=== PATIENT | male | born 1945 | race Caucasian/White ===

== ENCOUNTER 2016-09-12 20:49 | Inpatient (IN) | payer MEDICARE ==
[~2016-09-12] VITALS: Ht 170.2 cm; Wt 63.6 kg
[~2016-09-12 20:49] MED LIST: ATROVENT 0.02%2.5 ML UPD; BACTRIM DS TABL1 TAB PO; BENADRYL50 MG PO; CARDIZEM60 MG; DESYREL50 MG PO; DUONEB 2.5-0.5 M3 ML UPD; FLEXERIL10 MG; FORADIL12 MCG INH; GLUCOPHAGE1000 MG PO; GLUCOPHAGE500 MG PO; ILOTYCIN1 GM OP; K-DUR20 MEQ PO; LASIX40 MG PO; LEVAQUIN500 MG PO; PLAVIX75 MG PO; PRAVACHOL20 MG PO; PREDNISONE10 MG PO; PULMICORT0.5 MG/21 INH; SPIRIVA18 MCG INH; VENTOLIN/PR2 MG/5 ML PO; XOPENEX 0.0.63 MG/3 UPD
[2016-09-12 21:35] LABS: BASOPHILS 0.1 % (0.0-2.0); EOSINOPHILS 0.2 % (0-7); HEMATOCRIT 44.6 % (42.0-54.0); HEMOGLOBIN 14.1 g/dL (13.5-17.5); LYMPHOCYTES 11.6 % (15-50); MCH 28.3 pg (26.0-34.0); MCHC 31.6 g/dL (31.0-37.0); MCV 89.6 fL (80.0-100.0); MEAN PLATELET VOLUME 12.1 fL (7.4-10.4); NEUTROPHILS 78.1 % (40-80); PLATELET COUNT 168 10x3/uL (130-400); RBC 4.98 10x6/uL (4.20-6.10); RDW 14.4 % (11.5-14.5); WBC 10.1 10x3/uL (4.8-10.8)
[2016-09-12 21:46] LABS: APPEARANCE CLEAR (CLEAR); BILIRUBIN NEGATIVE (NEGATIVE); COLOR YELLOW (YELLOW); GLUCOSE NEGATIVE (NEGATIVE); KETONE NEGATIVE (NEGATIVE); LEUKOCYTE ESTERASE NEGATIVE (NEGATIVE); NITRITE NEGATIVE (NEGATIVE); PROTEIN NEGATIVE (NEGATIVE); UROBILINOGEN NORMAL (NORMAL)
[2016-09-12 21:50] LABS: CARBON DIOXIDE 28.4 mmol/L (21.0-32.0); CHLORIDE - SERUM 102 mmol/L (98-107); POTASSIUM - SERUM 4.3 mmol/L (3.5-5.1); SODIUM 141 mmol/L (136-145); UREA NITROGEN 14 mg/dL (7-18)
[2016-09-12 21:51] LABS: UDS - AMPHET NEGATIVE QUAL (NEGATIVE); UDS - BARB NEGATIVE QUAL (NEGATIVE); UDS - BENZO NEGATIVE QUAL (NEGATIVE); UDS - COCAINE NEGATIVE QUAL (NEGATIVE); UDS - METH NEGATIVE QUAL (NEGATIVE); UDS - OPIATE NEGATIVE QUAL (NEGATIVE); UDS - PCP NEGATIVE QUAL (NEGATIVE); UDS - THC NEGATIVE QUAL (NEGATIVE)
[2016-09-12 22:13] LABS: ALKALINE PHOSPHATASE 69 U/L (46-116); ALT (SGPT) 31 U/L (10-68); AMYLASE - SERUM 43 U/L (25-115); BILIRUBIN - TOTAL 0.79 mg/dL (0.2-1.3); CKMB 0.6 U/L (0.0-3.6); CREATINE KINASE 17 UL (21-232); GLUCOSE 165 mg/dL (74-106); LIPASE 79 U/L (73-393); PROTEIN - SERUM 6.3 g/dL (6.4-8.2)
[2016-09-12 22:28] LABS: CALC OSMOLALITY 283 mosm/kg (275-300); CALCIUM 8.6 mg/dL (8.5-10.1); CREATININE - SERUM 0.7 mg/dL (0.6-1.3); TROPONIN-I < 0.017 ng/mL (0.000-0.060); eGFR NON AFRICAN AMERICAN > 90 mL/min (90-120)
[2016-09-13] VITALS (27 sets, daily range): BP systolic 74–132; BP diastolic 53–85; BMI 22.6
--- NOTE | 2016-09-13 00:20 | NUR ---
ARRIVED TO ROOM 2309 VIA STRETCHER. SEDATED ON DIPRIVAN AT 4MCG/KG/MIN TO LEFT AC PIV 18G. 8.0 OETT, 25CM AT THE LIP. VENT SETTINGS SET AC; 20; 600; 50% FIO2 AND PEEP OF 5. SKIN INTACT TO POSTERIOR SIDE. NO WOUNDS. UMBILICAL SCAR NOTED WITH HERNIA NOTED WITH COUGHING. WITHDRAWS FROM PAINFUL STIMULI TO EACH EXTREMITY. PLACED INTO BILATERAL WRIST RESTRAINTS TO PREVENT REMOVAL OF OETT. HOB AT 30. SCD'S PLACED ONTO BILATERAL LE'S. TOSCANO TO GRAVITY NOTED WITH SCANT AMT OF CLEAR, ANTON URINE. WILL MONITOR.
[2016-09-13 00:57] LABS: CKMB 6.3 U/L (0.0-3.6); CREATINE KINASE 8 UL (21-232); TROPONIN-I 0.036 ng/mL (0.000-0.060)
[2016-09-13] MEDS ORDERED: GLIPIZIDE10 MG PO (00:59)
[2016-09-13] MEDS ORDERED: ASPIRIN81 MG PO (01:02)
[2016-09-13] MEDS ORDERED: OMEPRAZOLE20 M1 PO (01:03)
[2016-09-13] MEDS ORDERED: COZAAR25 MG PO (01:05)
[2016-09-13] MEDS ORDERED: DALIRESP500 MCG PO (01:06)
[2016-09-13] MEDS ORDERED: LIPITOR20 MG PO (01:08)
[2016-09-13] MEDS ORDERED: SPIRIVA18 MCG INH (01:10)
[2016-09-13] MEDS ORDERED: VENTOLIN HFA18 GM INH (01:12)
--- NOTE | 2016-09-13 01:30 | NUR ---
DR. BROCK CALLED AND INFORMED OF DECREASED B/P. NS BOLUS STARTED.
--- NOTE | 2016-09-13 01:45 | NUR ---
FAMILY LEAVING BEDSIDE. WILL CALL TO GET UPDATES.
--- NOTE | 2016-09-13 02:50 | NUR ---
AM ABG DRAWN PER KHLOE WITH R.T. RESTING WITH EYES CLOSED ON 10MCG/KG/MIN OF DIPRIVAN.
--- NOTE | 2016-09-13 03:50 | NUR ---
REASSESSMENT COMPLETED. SEE ASSESSMENT FLOWSHEET. NO NEW ACUTE CHANGES NOTED. OPENS EYES AND WITHDRAWS FROM PAINFUL STIMULI WHEN ILLICITED. I & O'S COMPLETED. MINIMAL URINARY OUTPUT NOTED. TURNED AND REPOSITIONED TO RT SIDE. WILL MONITOR.
--- NOTE | 2016-09-13 05:00 | NUR ---
AM LABS DRAWN. NO ACUTE DISTRESS NOTED. WILL MONITOR.
[2016-09-13 05:29] LABS: BASOPHILS 0.1 % (0.0-2.0); EOSINOPHILS 0 % (0-7); HEMATOCRIT 37.5 % (42.0-54.0); HEMOGLOBIN 11.6 g/dL (13.5-17.5); IMMATURE GRANULOCYTES 1.4 % (0-5); LYMPHOCYTES 3.4 % (15-50); MCH 27.8 pg (26.0-34.0); MCHC 30.9 g/dL (31.0-37.0); MCV 89.7 fL (80.0-100.0); MEAN PLATELET VOLUME 12.1 fL (7.4-10.4); MONOCYTES 1.8 % (2-11); NEUTROPHILS 93.3 % (40-80); PLATELET COUNT 152 10x3/uL (130-400); RBC 4.18 10x6/uL (4.20-6.10); RDW 14.3 % (11.5-14.5); WBC 8.1 10x3/uL (4.8-10.8)
[2016-09-13 05:56] LABS: ALBUMIN 2.6 g/dL (3.4-5.0); ALKALINE PHOSPHATASE 55 U/L (46-116); ALT (SGPT) 25 U/L (10-68); BILIRUBIN - TOTAL 0.47 mg/dL (0.2-1.3); CALCIUM 8.5 mg/dL (8.5-10.1); CARBON DIOXIDE 25.6 mmol/L (21.0-32.0); CHLORIDE - SERUM 105 mmol/L (98-107); CREATININE - SERUM 0.7 mg/dL (0.6-1.3); MAGNESIUM - SERUM 1.5 mg/dL (1.8-2.4); PHOSPHOROUS 3.9 mg/dL (2.5-4.9); POTASSIUM - SERUM 4.2 mmol/L (3.5-5.1); SODIUM 140 mmol/L (136-145); UREA NITROGEN 16 mg/dL (7-18); eGFR NON AFRICAN AMERICAN > 90 mL/min (90-120)
[2016-09-13 05:57] LABS: CALC OSMOLALITY 286 mosm/kg (275-300); GLUCOSE 221 mg/dL (74-106)
--- NOTE | 2016-09-13 06:05 | NUR ---
RAPID FLU SWAB COMPLETED TO RT NARE. SENT TO LAB.
[2016-09-13 06:20] LABS: CKMB 0.9 U/L (0.0-3.6); CREATINE KINASE 11 UL (21-232); TROPONIN-I 0.052 ng/mL (0.000-0.060)
[2016-09-13 12:20] LABS: CKMB 0.9 U/L (0.0-3.6)
[2016-09-13 12:21] LABS: CREATINE KINASE 6 UL (21-232)
--- NOTE | 2016-09-13 19:30 | NUR ---
ASSESSMENT COMPLETE. S1S2. PT SEDATED ON VENT; RR CLEAR BILATERALLY IN LOWER LOBES; DIMINISHED BILATERALLY IN MID AND LOWER LOBES. RADIAL PULSES +2; PEDAL PULSES +1. BILATERALLY FEET SCALY; DRY; FLAKEY. SINUS TACHYCARDIA SHOWING ON MONITOR. BP DECREASED; MAP IN 70'S. MONITORING CLOSELY. RIGHT AND LEFT PIV TO AC; BOTH PATENT. TOSCANO AND SCD IN PLACE. HX OF UMBILICAL HERNIA NOTED; AND PALPATED. NO DISTRESS NOTED. VSS. WILL CONTINUE TO MONITOR.
--- NOTE | 2016-09-13 21:30 | NUR ---
SPOKE WITH FAMILY; . UPDATE ON PT CONDITION GIVEN.
--- NOTE | 2016-09-13 23:15 | NUR ---
REASSESSMENT COMPLETE. NO CHANGES FROM PREVIOUS ASSESSMENT; OTHER THAN INCREASE IN ALERTNESS. NO ADJUSTMENTS MADE IN SEDATION. PT ABLE TO ANSWER YES AND NO QUESTIONS BY NODDING; ANSWERS APPROPRIATELY. ABLE TO FOLLOW COMMANDS. WILL CONTINUE TO MONITOR.
[2016-09-14] VITALS (23 sets, daily range): BP systolic 95–145; BP diastolic 59–91; Ht 170.2 cm; Wt 63.6 kg
--- NOTE | 2016-09-14 02:45 | NUR ---
REASSESSMENT COMPLETE. NO CHANGES FROM PREVIOUS ASSESSMENT. VSS. NO DISTRESS NOTED. WILL CONTINUE TO MONITOR.
--- NOTE | 2016-09-14 04:00 | NUR ---
I/O COLLECTED. TOSCANO EMPTIED. PUMPS CLEARED.
[2016-09-14 05:23] LABS: BASOPHILS 0 % (0.0-2.0); EOSINOPHILS 0 % (0-7); HEMATOCRIT 35.3 % (42.0-54.0); HEMOGLOBIN 11.3 g/dL (13.5-17.5); IMMATURE GRANULOCYTES 1.1 % (0-5); LYMPHOCYTES 5.6 % (15-50); MCH 27.8 pg (26.0-34.0); MEAN PLATELET VOLUME 11.8 fL (7.4-10.4); MONOCYTES 5.8 % (2-11); NEUTROPHILS 87.5 % (40-80); PLATELET COUNT 160 10x3/uL (130-400); RBC 4.07 10x6/uL (4.20-6.10); RDW 14.1 % (11.5-14.5); WBC 6.2 10x3/uL (4.8-10.8)
[2016-09-14 05:31] LABS: MCV 86.7 fL (80.0-100.0)
[2016-09-14 05:39] LABS: CALC OSMOLALITY 288 mosm/kg (275-300); CALCIUM 8.5 mg/dL (8.5-10.1); CARBON DIOXIDE 24.2 mmol/L (21.0-32.0); CHLORIDE - SERUM 106 mmol/L (98-107); CREATININE - SERUM 0.6 mg/dL (0.6-1.3); GLUCOSE 224 mg/dL (74-106); PHOSPHOROUS 3.1 mg/dL (2.5-4.9); SODIUM 141 mmol/L (136-145); UREA NITROGEN 14 mg/dL (7-18); eGFR NON AFRICAN AMERICAN > 90 mL/min (90-120)
[2016-09-14 05:40] LABS: MAGNESIUM - SERUM 2.1 mg/dL (1.8-2.4); POTASSIUM - SERUM 3.3 mmol/L (3.5-5.1)
--- NOTE | 2016-09-14 07:00 | NUR ---
REC'D REPORT AND RESUMED CARE, ETT TO VENTILATION SECURED, IN SIMV MODE WITH A RATE OF 14 AND 40% FIOS, ORAL CARE AND SUCTION OF THICK WHITE SECRETIONS, RIGHT 20G PIV WITH PROPOFAL AT 25 MCG, AND LEFT PIV WITH NS AT 75 CC/HR, TOSCANO TO GRAVITY WITH CONCENTRATED DRAINAGE TO BAG, SCD'S AND RESTRAINTS B/L, ASSESSMENT COMPLETE PER FLOWSHEET, VSS, REPOSITIONED TO BACK WITH HEELS FLOATED
--- NOTE | 2016-09-14 09:00 | NUR ---
PC FROM , PASSWORD OBTAINED, STATUS UPDATE GIVEN, NO OPTHER NEEDS AT THIS TIME
--- NOTE | 2016-09-14 10:30 | NUR ---
PLACE ON CPAP BY RT, SEDATION OFF, WAKES UP AND FOLLOWS COMMANDS
--- NOTE | 2016-09-14 11:15 | NUR ---
ABG'S COMPLETED BY RT
--- NOTE | 2016-09-14 11:30 | NUR ---
EXTUBATED TO 4L NC BY RT, ORAL CARE AND SUCTION COMPLETED, SAT 96%
--- NOTE | 2016-09-14 12:00 | NUR ---
FAMILY AT BEDSIDE, STATUS UPDATED, VOICES, NO NEEDS AT THIS TIME
--- NOTE | 2016-09-14 13:00 | NUR ---
CHANGED TO BIPAP BY RT AT 40% FIO2 AND A RATE OF 22
--- NOTE | 2016-09-14 15:00 | NUR ---
CHANGED TO NC AT 4L, FAMILY AT BEDSIDE, STATUS UPDATED, ASSESSMENT COMPLETED PER FLOWSHEET, NO ACUTE CHANGES, WILL CONTINUE WITH POC
--- NOTE | 2016-09-14 16:45 | NUR ---
Patient Name: FLIP DOLAN Admission Status: ER Accout number: [id number] Admission Date: 09-12-2016 : 1945 Admission Diagnosis:SHORTNESS OF BREATH Attending: ROSALINDA Current LOS: 2 Anticipated DC Date: 09-18-2016 Planned Disposition: Home Primary Insurance: MEDICARE PART A ONLY Discharge Planning Comments: CM MET WITH PATIENT REGARDING D/C NEEDS AND PLANS. PATIENT STATED HE LIVES WITH HIS (PIERCE) AND THEY HAVE A RAMP TO ENTER THEIR HOME. PATIENTS SON (NEHEMIAH) WILL DRIVE HIM HOME AT DISCHARGE. PATIENT IS INDEPENDENT WITH HIS CARE AND HAS A WALKER, OXYGEN (3L), PORT O2, NEBULIZER, GLUCOMETER (CHECKS 1X DAILY), BS COMMODE, AND A SHOWER CHAIR AT HOME. [place] DR[place]. [place] REFUSING TO GO [place] -PATIENT STATED "I WOULDN'T TAKE A DOG TO [place]" "I AM NOT GOING-DO NOT CALL". PATIENTS OXYGEN IS SUPPLIED BY SOMEONE AT [place]OUGH THE [place]. PATIENT IS CONSIDERING HOME HEALTH AT DISCHARGE. CM WILL CONTINUE TO FOLLOW PATIENT WITH D/C NEEDS AND PLANS. PCP DR. PIÑA [place] [facility] PIERCE (DAUGHTER) [phone] Blacking Wheel Tender: Ольга Morris Is the patient Alert and Oriented? Yes 0 * How many steps to enter\\exit or inside your home? RAMP 0 * PCP [place] DR. PIÑA 0 * Pharmacy [facility] 0 * Preadmission Environment Home with Family 0 * ADLs Independent 0 * Equipment Bedside Commode Glucometer Nebulizer Oxygen Shower Chair Walker 0 * Other Equipment PORTABLE O2 0 * List name and contact numbers for known caregivers / representatives who currently or will assist patient after discharge: PIERCE (DAUGHTER) [phone] * Community resources currently utilized None 0 * Additional services required to return to the preadmission environment? Yes 0 * Can the patient safely return to the preadmission environment? Yes 0 * Has this patient been hospitalized within the prior 30 days at any hospital? No 0 Grand Total: 0
--- NOTE | 2016-09-14 17:35 | NUR ---
C/O OF PAIN WITH LEFT AC PIV, DC'D WITH CATHETER INTACT, NO SWELLING OR ERYTHEMA NOTED, GAUZE DRESSING APPLIED
--- NOTE | 2016-09-14 18:00 | NUR ---
NO VISITORS AT THIS TIME, AAO CONTINUES ON NC AT 4 L, SAT 97%,
--- NOTE | 2016-09-14 18:42 | NUR ---
PLACED ON BIPAP PER REQUEST
--- NOTE | 2016-09-14 19:50 | NUR ---
REC'D TO ROOM CV07 FROM ICU VIA BED, ALL MONITORS ESTABLISHED, PT AWAKE, ALERT, AND ORIENTED X 4, O2 @ 4LITERS VIA NC, RIGHT A/C PIV WITH NS @ 50CC/HR CM-ST @ 107, ABD SOFT, BS X 4, TOSCANO PATENT DRAINING CONCENTRATED URINE WITH SEDIMENT, PT DENIES PAIN, REPOSITIONED UP IN BED FOR COMFORT, SR UP X 2, CALL LIGHT IN REACH.
--- NOTE | 2016-09-14 20:00 | NUR ---
SPOKE WITH PT'S UPDATE GIVEN AND QUESTIONS ANSWERED AFTER PASSWORD VERIFIED.
--- NOTE | 2016-09-14 20:30 | NUR ---
ICE WATER AND YANKEUR PROVIDED ON REQUEST, ROUTINE ANTIBIOTIC INFUSING, PT RESTING QUIETLY WATCHING TV, DENIES FURTHER NEEDS.
--- NOTE | 2016-09-14 20:55 | NUR ---
LAB AT FOR TIMED LAB DRAW
--- NOTE | 2016-09-14 21:20 | NUR ---
SON AT BS UPDATE GIVEN AND QUESTIONS ANSWERED.
--- NOTE | 2016-09-14 22:45 | NUR ---
PT PLACED ON BIPAP @ 40%, PT COMPLAINS OF BEING COLD WARM BLANKET PROVIDED ,DENIES FURTHER NEEDS.
--- NOTE | 2016-09-14 23:30 | NUR ---
REASSESSMENT COMPLETED, ROUTINE MEDS GIVEN, FSBS 150, NO COVERAGE REQUIRED AT THIS TIME, VSS, WILL MONITOR FOR CHANGES.
[2016-09-15] VITALS (16 sets, daily range): BP systolic 124–162; BP diastolic 60–88
--- NOTE | 2016-09-15 00:43 | NUR ---
PT REMOVED FROM BIPAP AND PLACED ON 4LITER NC, PT COMPLAINS OF BIPAP MASK HURTING UNDER LEFT EYE DESPITE LOOSENING MASK, RT NOTIFIED.
--- NOTE | 2016-09-15 03:00 | NUR ---
REASSESSMENT COMPLETED, PT RESTING ON BIPAP EYES CLOSED, RESP @ 24 ,O2 SAT 99%, BP STABLE, NO DISTRESS NOTED, WILL CONTINUE TO MONITOR FOR CHANGES.
--- NOTE | 2016-09-15 04:23 | NUR ---
RADIOLOGY AT BS FOR AM CXR
--- NOTE | 2016-09-15 05:31 | NUR ---
LAB AT FOR AM LAB DRAW
[2016-09-15 05:56] LABS: BASOPHILS 0.1 % (0.0-2.0); EOSINOPHILS 0 % (0-7); HEMATOCRIT 37.5 % (42.0-54.0); HEMOGLOBIN 11.9 g/dL (13.5-17.5); IMMATURE GRANULOCYTES 1.2 % (0-5); LYMPHOCYTES 3.8 % (15-50); MCH 27.7 pg (26.0-34.0); MCHC 31.7 g/dL (31.0-37.0); MCV 87.4 fL (80.0-100.0); MEAN PLATELET VOLUME 11.4 fL (7.4-10.4); MONOCYTES 5.2 % (2-11); NEUTROPHILS 89.7 % (40-80); PLATELET COUNT 154 10x3/uL (130-400); RBC 4.29 10x6/uL (4.20-6.10); RDW 14.1 % (11.5-14.5); WBC 7.3 10x3/uL (4.8-10.8)
[2016-09-15 06:20] LABS: CALC OSMOLALITY 285 mosm/kg (275-300); CALCIUM 8.3 mg/dL (8.5-10.1); CARBON DIOXIDE 23.7 mmol/L (21.0-32.0); CHLORIDE - SERUM 107 mmol/L (98-107); CREATININE - SERUM 0.5 mg/dL (0.6-1.3); MAGNESIUM - SERUM 1.9 mg/dL (1.8-2.4); POTASSIUM - SERUM 4.1 mmol/L (3.5-5.1); SODIUM 141 mmol/L (136-145); UREA NITROGEN 16 mg/dL (7-18); eGFR NON AFRICAN AMERICAN > 90 mL/min (90-120)
[2016-09-15 06:23] LABS: GLUCOSE 172 mg/dL (74-106)
--- NOTE | 2016-09-15 06:30 | NUR ---
SERUM GLUCOSE 172, 4 UNITS HUMALOG GIVEN TO LEFT ARM, PT REMAINS ON BIPAP, CALM AND COOPERATIVE, DENIES NEEDS, STATES "YES" WHEN ASKED IF ROOM TO COLD, WORK ORDER SENT TO ENGINEERING
--- NOTE | 2016-09-15 07:00 | NUR ---
PT REPORT REC'D, PT CARE ASSUMED. PT AAOX4, LAYING IN BED. NO C/O PAIN, VSS, 40% BIPAP. RIGHT AC PIV WITH FLUIDS INFUSING, SEE FLOW SHEET. TOSCANO CATHETER FREE OF KINKS WITH CONCENTRATED URINE RETURN TO GRAVITY. DISCOLORATION TO BILAT EXTREMETIES NOTED. SHIFT ASSESSMENT COMPLETED, SEE FLOW SHEET. ROOM FREE OF CLUTTER, BED LOCKED IN LOWEST POSITION, CALL LIGHT IN REACH, WILL CONTINUE TO MONITOR PT.
--- NOTE | 2016-09-15 08:16 | NUR ---
RT WITH PT, SWITCHED FROM BIPAP TO 3LNC, WILL CONINUE TO MONITOR PT.
--- NOTE | 2016-09-15 08:45 | NUR ---
PT STATING "ROOMS TOO HOT, I NEED MY BIPAP" PUT PT ON BIPAP, WORK ORDER SENT TO ENGINEERING TO ADJUST PT'S ROOM TEMPERATURE. WILL CONTINUE TO MONITOR PT.
--- NOTE | 2016-09-15 09:42 | NUR ---
PT REQUESTING TO BE PUT BACK ON NC, TRANSFERRED PT, PT STATED "I USE 4L AT HOME." INCREASED NC FROM 3LNC TO 4LNC,PT TOLERATING WELL, WILL CONTINUE TO MONITOR PT.
--- NOTE | 2016-09-15 10:18 | NUR ---
PT C/O SOB, REQUESTIONG TO BE PUT ON BIPAP, WILL CONTINUE TO MONITOR PT.
--- NOTE | 2016-09-15 11:00 | NUR ---
PT RESTING WITH EYES CLOSED, VSS, BIPAP 40%, REASSESSMENT COMPLETED, SEE FLOW SHEET. ROOM FREE OF CLUTTER, CALL LLIGHT IN REACH, WILL CONTINUE TO MONITOR PT.
--- NOTE | 2016-09-15 11:01 | NUR ---
NUTRITION MONITORING & EVAL CHART REVIEWED. NURSING REPORTS PT ON BIPAP. TOLERATING CLEAR LIQUIDS. TO ADVANCE DIET TO FULL LIQUID AT LUNCH. WILL CONTINUE TO PROVIDE DIET ORDERED, MONITOR PT PROGRESS. RD FOLLOWING
--- NOTE | 2016-09-15 13:01 | NUR ---
PT REPORT CALLED TO NANO PETERSON, PT TO TRANSFER TO ROOM 2128 VIA BED.
--- NOTE | 2016-09-15 13:37 | NUR ---
RECEIVED PT TO ROOM 2127 IN STABLE CONDITION O2 ON 4 LPM NC BIPAP AT AT BEDSIDE RESP UNLABORED PT DENIES ANY NEEDS OR DISCOMFORT AT THIS TIME WILL CONTINUE TO MONITOR
--- NOTE | 2016-09-15 16:34 | NUR ---
fsbs 120
--- NOTE | 2016-09-15 19:57 | NUR ---
RESTING IN BED. ALERT/ORIENTED. HAD BIPAP ON , REQUESTED TO TAKE IT OFF AND PUT ON O2 @ 4L/NC. NS @ 75ML/HR INFUSING TO RIGHT A/C. DORCAS PATENT TO BEDSIDE DRAIN BAG. SR PER TELEMETRY. SEE SHIFT ASSESSMENT. CALL LIGHT IN REACH.
[2016-09-16] VITALS: BP 136/81
[2016-09-16 04:00] VITALS: BP 140/82
[2016-09-16 05:56] LABS: BASOPHILS 0.1 % (0.0-2.0); EOSINOPHILS 0 % (0-7); HEMATOCRIT 37.5 % (42.0-54.0); HEMOGLOBIN 11.9 g/dL (13.5-17.5); IMMATURE GRANULOCYTES 3.1 % (0-5); LYMPHOCYTES 4.1 % (15-50); MCH 27.7 pg (26.0-34.0); MCHC 31.7 g/dL (31.0-37.0); MCV 87.4 fL (80.0-100.0); MEAN PLATELET VOLUME 11.2 fL (7.4-10.4); MONOCYTES 6.7 % (2-11); PLATELET COUNT 161 10x3/uL (130-400); RBC 4.29 10x6/uL (4.20-6.10); WBC 6.8 10x3/uL (4.8-10.8)
[2016-09-16 06:19] LABS: CALC OSMOLALITY 280 mosm/kg (275-300); CALCIUM 8.5 mg/dL (8.5-10.1); CARBON DIOXIDE 26.1 mmol/L (21.0-32.0); CHLORIDE - SERUM 105 mmol/L (98-107); CREATININE - SERUM 0.4 mg/dL (0.6-1.3); GLUCOSE 164 mg/dL (74-106); MAGNESIUM - SERUM 1.8 mg/dL (1.8-2.4); POTASSIUM - SERUM 4.2 mmol/L (3.5-5.1); SODIUM 138 mmol/L (136-145); UREA NITROGEN 16 mg/dL (7-18); VANCOMYCIN - TROUGH 11.1 ug/mL (10.0-20.0); eGFR NON AFRICAN AMERICAN > 90 mL/min (90-120)
[2016-09-16 08:00] VITALS: BP 148/79
[2016-09-16 12:00] VITALS: BP 134/81
[2016-09-16 16:09] VITALS: BP 146/80
[2016-09-16 20:00] VITALS: BP 146/80
--- NOTE | 2016-09-16 20:36 | NUR ---
PT RESTING IN BED. ALERT/ORIENTED. NEWLY SITED IV TO LFA WITH NS @ 75ML/HR INFUSING. IV ABT STARTED. PT ASSESSED. DORCAS PATENT TO BEDSIDE DRAIN BAG, DARK YELLOW IN COLOR. CURRENTLY WEARING O2 @ 4L/NC WITH NONLABORED RESPIRATIONS. WILL BE PLACED ON BIPAP AT BEDTIME. JIA AT BEDSIDE FOR PT USE. FSBS AC & HS, CURRENTLY 119. DISCUSSED PT'S MOBILITY WITH HIM. HE STATES HE HAS NOT BEEN OUT OF BED SINCE ICU AND KNOWS THAT HE IS VERY WEAK NOW, NOT SURE HE CAN EVEN STAND. WILL FOLLOW UP WITH MD FOR PT EVAL. FOR NOW PT IS TURNED EVERY 2 HOURS AND PRN. SEE ASSESSMENT. CPOC.
--- NOTE | 2016-09-16 21:48 | NUR ---
2ND ABT UP AND INFUSING. SECURED IV TUBING. NO OTHER NEEDS.
--- NOTE | 2016-09-16 23:28 | NUR ---
RESTING WITH EYES CLOSED. BIPAP IN PLACE. IVF INFUSING. CALL LIGHT IN REACH.
[2016-09-17] VITALS: BP 130/81
[2016-09-17 04:00] VITALS: BP 174/69
--- NOTE | 2016-09-17 05:52 | NUR ---
RESTING IN BED WITH BIPAP IN PLACE. IVF INFUSING, IV ABT NOW UP. DORCAS PATENT TO BEDSIDE DRAIN BAG. CALL LIGHT IN REACH.
[2016-09-17 06:56] LABS: BASOPHILS 0.1 % (0.0-2.0); EOSINOPHILS 0 % (0-7); HEMATOCRIT 39.5 % (42.0-54.0); HEMOGLOBIN 12.4 g/dL (13.5-17.5); IMMATURE GRANULOCYTES 5.7 % (0-5); LYMPHOCYTES 6.5 % (15-50); MCH 27.4 pg (26.0-34.0); MCHC 31.4 g/dL (31.0-37.0); MCV 87.4 fL (80.0-100.0); MONOCYTES 9.4 % (2-11); NEUTROPHILS 78.3 % (40-80); PLATELET COUNT 149 10x3/uL (130-400); RBC 4.52 10x6/uL (4.20-6.10); RDW 13.9 % (11.5-14.5); WBC 7.7 10x3/uL (4.8-10.8)
[2016-09-17 07:07] LABS: CALC OSMOLALITY 282 mosm/kg (275-300); CALCIUM 8.3 mg/dL (8.5-10.1); CARBON DIOXIDE 28.1 mmol/L (21.0-32.0); CHLORIDE - SERUM 103 mmol/L (98-107); GLUCOSE 165 mg/dL (74-106); MAGNESIUM - SERUM 1.8 mg/dL (1.8-2.4); POTASSIUM - SERUM 3.7 mmol/L (3.5-5.1); SODIUM 139 mmol/L (136-145); UREA NITROGEN 14 mg/dL (7-18)
[2016-09-17 07:11] LABS: CREATININE - SERUM 0.6 mg/dL (0.6-1.3); eGFR NON AFRICAN AMERICAN > 90 mL/min (90-120)
--- NOTE | 2016-09-17 07:35 | NUR ---
PATIENT RESTING QUIETLY WITH HIS BIPAP ON. DENIES NEEDS.
--- NOTE | 2016-09-17 08:12 | NUR ---
PATIENT SITTING UP IN HIS BED, WEARING O2 AT 4LPM EATING HIS BREAKFAST. HE DENIES NEEDS. AND HAS HIS CALL LIGHT WITHIN HIS REACH. DOOR LEFT AJAR. MONITORING.
--- NOTE | 2016-09-17 08:54 | NUR ---
PATIENT HAS LOWERED HIS BED TO 30 DEGREES. HE CONTINUES TO WEAR O2 PER NC. HE STATES TAHT HE HAS BEEN WITHOUT THE BIPAP SINCE 729. HE STATES THAT THIS HAS BEEN HIS LONGEST STRETCH WITHOUT IT. HE TALKS TO ME AND RELAYS HIS HISTORY OF ADMISSION AND RECENT BOUT WITH PNEUMONIA. HE STATES THAT HE FEELS THAT HE DOESNT HAVE LONG TO LIVE DUE TO HIS LUNGS. HE STATES THAT HE IS AT PEACE WITH THAT AND HAS DISCUSSED THIS WITH HIS FAMILY.
[2016-09-17 09:09] VITALS: BP 138/71
--- NOTE | 2016-09-17 09:39 | NUR ---
PATIENT AWAKE, INTERACTIVE HE CAN BE. WEARING BIPAP. SUCTIONING PHLEM THAT HE IS ABLE TO COUGH UP.
--- NOTE | 2016-09-17 11:23 | NUR ---
USHA REQUESTS HIS BIPAP BE REMOVED, RT NOTIFIED. PATIENT DENIES OTHER NEEDS.
[2016-09-17 12:29] VITALS: BP 138/85
--- NOTE | 2016-09-17 13:26 | NUR ---
Nutrition Follow Up: Chart reviewed. Pt is eating 75% meal avg on a diabetic diet. Wt loss 4# since admit. I>O. +BM 09/16/16. Labs noted - Glucose continues elevated. Meds noted including NS @ 75 ml/hr, Solu-Medrol, Humalog, Zofran. Pt with good po intake at this time. Rec continue current diet. RD following.
--- NOTE | 2016-09-17 13:57 | NUR ---
BIPAP REAPPLIED PER HIS REQUEST. HE STATES THAT HE IS STRUGGLING. HR ELEVATED AND HE IS PURSE LIP BREATHING THOUGH NO OTHER OUTWARD SIGNS OF DISTRESS ARE EVIDENT. HIS IS SITTING IN A WHEELCHAIR AT THE BEDSIDE.
--- NOTE | 2016-09-17 16:30 | NUR ---
PATIENT REQUESTS HIS BIPAP REMOVED FOR A BIT SO HE CAN VISIT WITH .
[2016-09-17 16:40] VITALS: BP 154/93
--- NOTE | 2016-09-17 17:25 | NUR ---
PATIENT IS AWAKE AND ALERT. IV MEDICATIONS GIVEN PER THE LEFT FA IV. IVF INFUSING PER ORDERS. HE WAS WEARING A NC WITH O2 AT 4LPM, TALKING WITH HIS WHEN I ENTERED. HIS FSBS NOTED. HE STATED THAT HE HAD SOME JELLO AT LUNCH THAT MAY HAVE CAUSED HIS NUMBERS TO RISE. HE REFUSES HIS SUPPER AT THIS TIME. WILL HOLD HIS INSULIN COVERAGE AT THIS TIME. HE REQUESTED HIS BIPAP REPLACED BEFORE I LEFT.
[2016-09-17 20:00] VITALS: BP 152/89
[2016-09-18] VITALS: BP 159/81
[2016-09-18 04:00] VITALS: BP 157/85
[2016-09-18 05:31] LABS: BASOPHILS 0.4 % (0.0-2.0); EOSINOPHILS 0 % (0-7); HEMATOCRIT 38.2 % (42.0-54.0); HEMOGLOBIN 12.3 g/dL (13.5-17.5); IMMATURE GRANULOCYTES 9.9 % (0-5); LYMPHOCYTES 6.2 % (15-50); MCH 27.6 pg (26.0-34.0); MCHC 32.2 g/dL (31.0-37.0); MCV 85.8 fL (80.0-100.0); MEAN PLATELET VOLUME 11.4 fL (7.4-10.4); MONOCYTES 5.8 % (2-11); NEUTROPHILS 77.7 % (40-80); PLATELET COUNT 143 10x3/uL (130-400); RBC 4.45 10x6/uL (4.20-6.10); RDW 13.7 % (11.5-14.5); WBC 7.5 10x3/uL (4.8-10.8)
[2016-09-18 05:54] LABS: CALC OSMOLALITY 279 mosm/kg (275-300); CALCIUM 7.8 mg/dL (8.5-10.1); CARBON DIOXIDE 29.2 mmol/L (21.0-32.0); CHLORIDE - SERUM 103 mmol/L (98-107); CREATININE - SERUM 0.5 mg/dL (0.6-1.3); GLUCOSE 180 mg/dL (74-106); MAGNESIUM - SERUM 1.6 mg/dL (1.8-2.4); SODIUM 138 mmol/L (136-145); UREA NITROGEN 11 mg/dL (7-18); VANCOMYCIN - TROUGH 20.5 ug/mL (10.0-20.0); eGFR NON AFRICAN AMERICAN > 90 mL/min (90-120)
--- NOTE | 2016-09-18 07:26 | NUR ---
ASSESSMENT COMPLETED. LYING QUIETLY WITH HOB UP. USING HIS BI PAP. TELEMERTY SHOWS SR 99. LEFT FORE ARM IV WITH NS AT 75. DENIES ANY PAIN OR NEEDS.CALLLIGHT IN REAC WITH SR UP
--- NOTE | 2016-09-18 08:05 | NUR ---
RESTS IN BED WITHOUT NEEDS VOICED. IV PATENT. CALL LIGHT IN REACH. WILL CONT. PLAN OF CARE.
[2016-09-18 09:36] VITALS: BP 151/92
[2016-09-18 12:11] VITALS: BP 130/79
--- NOTE | 2016-09-18 12:38 | NUR ---
UP IN BEDSIDE CHAIR. DENIES ANY NEEDS. FAMILY AT BEDSIDE. WILL MONITOR
[2016-09-18 18:08] VITALS: BP 140/74
--- NOTE | 2016-09-18 18:20 | NUR ---
LYING QUIETLY. NO NEEDS NOTED. CALL LIGHT IN REACH WITH SR UP.
[2016-09-18 19:00] VITALS: BP 123/76
--- NOTE | 2016-09-18 19:20 | NUR ---
ASSESSMENT DONE. PT LAYING IN BED TALKING ON THE PHONE. A/O. DENIES NEEDS. CALL LIGHT WITH IN REACH. WILL CONT. TO MONITOR.
[2016-09-19] VITALS: BP 186/92
--- NOTE | 2016-09-19 00:32 | NUR ---
PT SLEEPING. WEARING BIPAP. APPEARS COMFORTABLE. NO DISTRESS NOTED. CALL LIGHT WITH IN REACH. WILL CONT. TO MONITOR.
--- NOTE | 2016-09-19 01:56 | NUR ---
PT CALLED NURSE INTO ROOM D/T IV PUMP BEEPING. PT WEARING BIPAP. DENIES OTHER NEEDS OR WANTS AT THIS TIME. CALL LIGHT WITHIN REACH. WILL CONT. TO MONITOR.
[2016-09-19 04:00] VITALS: BP 122/84
--- NOTE | 2016-09-19 05:09 | NUR ---
AGREE WITH CP BLEACHER OPERATOR'S ASSESSMENT. CONTINUE PLAN OF CARE.
[2016-09-19 06:15] LABS: BASOPHILS 0.3 % (0.0-2.0); EOSINOPHILS 0.1 % (0-7); HEMATOCRIT 38.8 % (42.0-54.0); HEMOGLOBIN 12.3 g/dL (13.5-17.5); IMMATURE GRANULOCYTES 9.7 % (0-5); LYMPHOCYTES 4.6 % (15-50); MCH 27.2 pg (26.0-34.0); MCHC 31.7 g/dL (31.0-37.0); MCV 85.8 fL (80.0-100.0); MEAN PLATELET VOLUME 11.4 fL (7.4-10.4); MONOCYTES 3.8 % (2-11); NEUTROPHILS 81.5 % (40-80); PLATELET COUNT 141 10x3/uL (130-400); RBC 4.52 10x6/uL (4.20-6.10); RDW 13.8 % (11.5-14.5); WBC 9.2 10x3/uL (4.8-10.8)
--- NOTE | 2016-09-19 06:17 | NUR ---
PT SLEEPING. WEARING BIPAP. AWAKEN BY NURSE ENTERING ROOM. PT DENIES NEEDS. NO DISTRESS NOTED. CALL LIGHT WITH IN REACH. WILL CONT. TO MONITOR.
[2016-09-19 06:29] LABS: CALC OSMOLALITY 276 mosm/kg (275-300); CALCIUM 8.1 mg/dL (8.5-10.1); CARBON DIOXIDE 28.2 mmol/L (21.0-32.0); CHLORIDE - SERUM 101 mmol/L (98-107); CREATININE - SERUM 0.5 mg/dL (0.6-1.3); GLUCOSE 174 mg/dL (74-106); MAGNESIUM - SERUM 1.5 mg/dL (1.8-2.4); POTASSIUM - SERUM 3.5 mmol/L (3.5-5.1); SODIUM 137 mmol/L (136-145); UREA NITROGEN 11 mg/dL (7-18); eGFR NON AFRICAN AMERICAN > 90 mL/min (90-120)
--- NOTE | 2016-09-19 07:00 | NUR ---
RECEIVED REPORT. ASSUMED CARE OF PATIENT. CALL LIGHT WITHIN REACH. BIPAP PATENT AT THIS TIME. PATIENT ALERT/ORIENTED. DENIES NEEDS AT THIS TIME. NOC SHIFT INITIATED EP FOR LOW MAG LEVEL. NO DISTRESS.
[2016-09-19 08:26] VITALS: BP 142/85
--- NOTE | 2016-09-19 10:37 | NUR ---
OOB WITH PHYSICAL THERAPY TO BEDSIDE CHAIR. NO DISTRESS.
--- NOTE | 2016-09-19 12:20 | NUR ---
FSBS 160. 4 UNITS INSULIN PROVIDED PER SLIDING SCALE. SITTING IN CHAIR AT BEDSIDE EATING NOON MEAL AT THIS TIME.
[2016-09-19 12:30] VITALS: BP 137/83
[2016-09-19 16:00] VITALS: BP 142/86
--- NOTE | 2016-09-19 16:32 | NUR ---
FSBS 208. 8 UNITS HUMALOG ADMINISTERED PER SLIDING SCALE. NO DISTRESS.
--- NOTE | 2016-09-19 18:14 | NUR ---
RESTING IN BED WITH EYES OPEN. DENIES NEEDS. CALL LIGHT WITHIN REACH. NO DISTRESS.
--- NOTE | 2016-09-19 19:23 | NUR ---
INITIAL ROUNDS COMPLETED. PT DENIES ANY DISCOMFORT. WILL CONTINUE TO MONITOR.
--- NOTE | 2016-09-19 20:00 | NUR ---
ASSESSMENT COMPLETED AT 1925 HRS. BIPAP IN USE. O2 4LNC WHEN NOT USING BIPAP. IV TO LFA WITH NS AT 75CC/HR. IV PATENT. ST PER CM HR 105. PT SOB WITH EXERTION. LUNGS DIMINISHED IN BASES BILAT. WILL CONITNUE TO MONITOR. SR UP X2, CALL LIGHT WITHIN REACH.
[2016-09-19 20:19] VITALS: BP 132/77
--- NOTE | 2016-09-19 22:47 | NUR ---
PM MEDS GIVEN PER ORDERS. FSBS 169. 4 UNITS HUMALOG GIVEN SUB-Q TO UPPER L ARM AT THAT TIME. PT CURRENTLY RESTING WITH EYES CLOSED. RESP EVEN AND REGULAR. SR UP X2,CALL LIGHT WITHIN REACH.
[2016-09-20] VITALS: BP 126/79
--- NOTE | 2016-09-20 03:31 | NUR ---
PT RESTING WITH EYES CLOSED. RESP EVEN AND REGULAR. SR UP X2,CALL LIGHT WITHIN REACH.
[2016-09-20 04:00] VITALS: BP 140/81
--- NOTE | 2016-09-20 05:37 | NUR ---
VSS THROUGHOUT NIGHT. PT DENIED ANY DISCOMFORT. NEEDS MET; WILL CONTINUE TO MONITOR.
[2016-09-20 08:27] VITALS: BP 158/71
[2016-09-20 13:36] VITALS: BP 187/105
--- NOTE | 2016-09-20 18:27 | NUR ---
ALERT AND ORIENTED X4. SITTING UP IN BED. FAMILY AT BEDSIDE. DENIES ANY NEEDS. CONTINUE PLAN OF CARE. BED LOCKED AND LOW. CALL LIGHT IN REACH. TWO SIDERAILS UP.
[2016-09-20 18:52] VITALS: BP 134/68
[2016-09-20 19:00] VITALS: BP 136/76
--- NOTE | 2016-09-20 19:59 | NUR ---
RESUMED CARE OF PT, LYING IN BED RESPIRATIONS EVEN AND UNLABORED ON 4LPM VIA NC. 92 SR WITH PVCS. LEFT FOREARM INFUSING NS @ 75. PLAN OF CARE DISCUSSED. CALL LIGHT IN REACH. NO NEEDS VOICED AT THIS TIME. WILL CONTINUE TO MONITOR. SEE NURSE ASSESSMENT.
[2016-09-21] VITALS: BP 145/86
--- NOTE | 2016-09-21 03:14 | NUR ---
LYING IN BED WITH EYES CLOSED, RESPIRATIONS EVEN AND UNLABORED. CALL LIGHT IN REACH. WILL CONTINUE TO MONITOR.
[2016-09-21 04:00] VITALS: BP 156/79
[2016-09-21 05:21] LABS: BASOPHILS 0.2 % (0.0-2.0); HEMATOCRIT 38.7 % (42.0-54.0); HEMOGLOBIN 12.3 g/dL (13.5-17.5); IMMATURE GRANULOCYTES 7.8 % (0-5); LYMPHOCYTES 9.9 % (15-50); MCH 27.5 pg (26.0-34.0); MCHC 31.8 g/dL (31.0-37.0); MCV 86.4 fL (80.0-100.0); MEAN PLATELET VOLUME 11.5 fL (7.4-10.4); MONOCYTES 6.4 % (2-11); NEUTROPHILS 74.7 % (40-80); PLATELET COUNT 128 10x3/uL (130-400); RBC 4.48 10x6/uL (4.20-6.10); RDW 14.2 % (11.5-14.5); WBC 10.2 10x3/uL (4.8-10.8)
[2016-09-21 05:56] LABS: CALCIUM 7.8 mg/dL (8.5-10.1); CARBON DIOXIDE 32.4 mmol/L (21.0-32.0); CHLORIDE - SERUM 104 mmol/L (98-107); CREATININE - SERUM 0.5 mg/dL (0.6-1.3); SODIUM 141 mmol/L (136-145); eGFR NON AFRICAN AMERICAN > 90 mL/min (90-120)
[2016-09-21 05:57] LABS: CALC OSMOLALITY 279 mosm/kg (275-300); GLUCOSE 113 mg/dL (74-106); UREA NITROGEN 7 mg/dL (7-18)
--- NOTE | 2016-09-21 06:46 | NUR ---
NO CHAGNES FROM PREVIOUS ASSESSMENT, CALL LIGHT IN REACH.
[2016-09-21 08:06] VITALS: BP 147/85
--- NOTE | 2016-09-21 11:00 | NUR ---
ALERT AND ORIENTED X4. REFUSE PHYSICAL THERAPY. COMPLAINS OF BEING TOO WEAK. BIPAP OFF. O2 @ 4L NC. DENIES PAIN. SINUS TACH WITH PVCs 103bpm ON TELEMETRY. STUDENT NURSE AT BEDSIDE. CONTINUE PLAN OF CARE. BED LOCKED AND LOW. CALL LIGHT IN REACH. TWO SIDERAILS UP.
--- NOTE | 2016-09-21 11:55 | NUR ---
Rehab Note- Informed of Acute Rehab Screen order. Spoke with the patient & his daughter. The patient stated that his just had surger & that he has two sons at home that will help him & that home health therapists really helped him the last time he discharged from the hospital. Gave the daughter my business card in case the home discharge did not work out well. Informed both Aylsha & GABINO Sebastian of the patient & family's plan to discharge home with home health. Thank you for this referral! Pepper Bo RN Clinical Liaison, [facility] Rehab/[place]
[2016-09-21 12:00] VITALS: BP 137/89
--- NOTE | 2016-09-21 15:11 | NUR ---
ALERT AND ORIENTED X4. RESTING IN BED. DENIES PAIN. SOB STABLE. GENERALIZED EDEMA NOW PITTING EDEMA. IV FLUIDS DECREASED FROM 75mL/HR TO 10mL/HR KVO. SINUS RHTHYM 93bpm WITH PVCs ON TELEMETRY. CONTINUE PLAN OF CARE. BED LOCKED AND LOW. CALL LIGHT IN REACH. TWO SIDERAILS UP.
[2016-09-21 15:43] VITALS: BP 140/86
--- NOTE | 2016-09-21 16:22 | NUR ---
Patient Name: FLIP DOLAN Admission Status: ER Accout number: [id number] Admission Date: 09-12-2016 : 1945 Admission Diagnosis:SHORTNESS OF BREATH Attending: ROSALINDA Current LOS: 9 Anticipated DC Date: 09-22-2016 Planned Disposition: Home WITH HOME HEALTH Primary Insurance: MEDICARE PART A ONLY PLANNED EXTERNAL PROVIDER: PROVIDER TO BE ARRANGED THROUGH [facility] Discharge Planning Comments: CM RECEIVED INPATIENT PRESCREENING ORDER; CM SPOKE TO INPATIENT REHAB SCREENER RAMANDEEP WHO REPORTED MEETING WITH PT WHO ADVISED HE WILL BE GOING HOME WITH ASSISTANCE OF FAMILY. CM MET WITH PT IN ROOM AND DISCUSSED DISCHARGE PLANNING AND NEEDS. CM DISCUSSED AVAILABILTY OF INPATIENT REHAB AND [facility]. PT REPORTED UNDERSTANDING AND REPORTS HE WILL CALL AND ARRANGE THE SERVICES IF HE GETS HOME AND DECIDES THAT HE CANNOT REHAB AT HOME. PT REQUESTS HOME HEALTH THROUGH HIS PRIMARY CARE, [facility]. CM DISCUSSED THAT CM WILL SEND INFORMATION WITH REQUEST FOR HOME HEALTH AND DIRECTED PT THAT HE WILL NEED TO FOLLOW UP WITH THE [facility] PERSONALLY TO ENSURE THAT HIS SERVICES ARE ARRANGED TIMELY FOLLOWING DISCHARGE HOME. CHOICE WITH NO HOME HEALTH PREFERENCE SIGNED, IMPORTANT MESSAGE FROM MEDICARE PROVIDED AND DISCUSSED. PT REPORTS UNDERSTANDING. CM CALLED [facility] IN [place], , SPOKE TO JASMIN WHO SENT MESSAGE TO [facility]ARE[facility] BUILDING MAINTENANCE CUSTODIAN AND DIRECTED CM TO FAX REFERRAL TO [facility]. CM FAXED REFERRAL TO DOTTIE AT [phone] WITH REQUEST FOR [facility] TO SET UP HOME HEALTH SERVICES FOR PT'S DISCHARGE HOME. PT WILL FOLLOW UP WITH LOCAL [facility] AFTER DISCHARGE [facility] Television Equipment Operator: Matt Suero
--- NOTE | 2016-09-21 19:50 | NUR ---
PT RESTING IN BED. O2 @ 4L/NC, EVEN AND NONLABORED. IV TO LFA WITH NS @ KVO. MORE TALKATIVE AND LOOKS LIKE HE IS FEELING BETTER. CPOC. CALL LIGHT IN REACH.
[2016-09-21 21:17] VITALS: BP 147/76
--- NOTE | 2016-09-21 23:04 | NUR ---
FSBS 167. NO ACTION, PT IS GOING TO SLEEP. BIPAP IN PLACE. CALL LIGHT IN REACH.
[2016-09-22 00:40] VITALS: BP 143/79
[2016-09-22 04:38] LABS: BASOPHILS 0.2 % (0.0-2.0); HEMOGLOBIN 12.4 g/dL (13.5-17.5); IMMATURE GRANULOCYTES 6.9 % (0-5); LYMPHOCYTES 11.4 % (15-50); MCH 27.7 pg (26.0-34.0); MCHC 31.8 g/dL (31.0-37.0); MCV 87.1 fL (80.0-100.0); MEAN PLATELET VOLUME 11.9 fL (7.4-10.4); MONOCYTES 5.1 % (2-11); NEUTROPHILS 75.4 % (40-80); PLATELET COUNT 132 10x3/uL (130-400); RBC 4.48 10x6/uL (4.20-6.10); RDW 14.2 % (11.5-14.5); WBC 10.2 10x3/uL (4.8-10.8)
[2016-09-22 05:11] LABS: CALC OSMOLALITY 281 mosm/kg (275-300); CALCIUM 8.3 mg/dL (8.5-10.1); CARBON DIOXIDE 35.3 mmol/L (21.0-32.0); CHLORIDE - SERUM 103 mmol/L (98-107); CREATININE - SERUM 0.6 mg/dL (0.6-1.3); GLUCOSE 152 mg/dL (74-106); MAGNESIUM - SERUM 1.6 mg/dL (1.8-2.4); PHOSPHOROUS 2.5 mg/dL (2.5-4.9); SODIUM 141 mmol/L (136-145); UREA NITROGEN 8 mg/dL (7-18); eGFR NON AFRICAN AMERICAN > 90 mL/min (90-120)
[2016-09-22 05:13] LABS: POTASSIUM - SERUM 3.5 mmol/L (3.5-5.1)
[2016-09-22 05:57] VITALS: BP 159/84
--- NOTE | 2016-09-22 06:00 | NUR ---
MAG LEVEL 1.6 ELECTROLYTE PROTOCOL. IV MAG 1GM NOW UP AND INFUSING.
[2016-09-22 08:00] VITALS: BP 128/73
--- NOTE | 2016-09-22 10:29 | NUR ---
ALERT AND ORIENTED X4. PHYSICAL THERAPY ASSIST TO CHAIR. LINEN AND SPONGE BATH COMPLETE. CHRONIC SOB STABLE. O2 @ 4L NC. ELECTROLYTE REPLACEMENT OF Mg COMPLETE. SINUS RHTHYM 89bpm WITH PVCs ON TELEMETRY. DENIES PAIN. CONTINUE PLAN OF CARE. CHAIR LOCKED. CALL LIGHT IN REACH.
--- NOTE | 2016-09-22 11:49 | NUR ---
Patient Name: FLIP DOLAN Encounter No: [id number] : 1945 Primary Insurance: MEDICARE PART A ONLY Anticipated DC Date: 09-22-2016 Planned Disposition: Home DCP follow-up note: CM RECEIVED CALL FROM DOTTIE CAMARENA OF [place], , [id number] WHO RE[facility]ED THAT [facility] - THE PT REFUSED [facility] AND ADVISED THAT CM SHOULD TREAT PT IF HE IS A MEDICARE PT. GABINO EXPLAINED THAT PT DOES NOT HAVE A COMMUNITY DOCTOR OTHER THAN [facility] DOCTOR TO SIGN HOME HEALTH ORDERS. PT IS REFUSING INPATIENT REHAB SERVICES. DOTTIE EXPLAINED THAT THE [facility] WILL CONTACT PT POST DISCHARGE AND ARRANGE A FOLLOW UP APPOINTMENT FOR HIM AT THE CLINIC. DOTTIE OFFERED THAT PT MAY BE EVALUATED BY THE [facility] FOR THE [facility] IN [place] FOR INPATIENT REHAB, IF PT IS INTERESTED, CALL REFERRAL TO [phone]. GABINO MET WITH PT, NOTIFIED OF ABOVE. PT WILL NOT CONSIDER GOING TO [place], REPORTS HE WOULD NOT SEND HIS DOG THERE AND WILL NOT CONSIDER [facility] FOR INPATIENT REHAB. PT WILL NOT CONSIDER INPATIENT REHAB AT [facility] OR [place]. PT REPORTS PLAN TO RETURN HOME WITH THE ASSISTANCE ADN CARE OF HIS THREE ADULT SONS AND IF HE FEELS HE NEEDS REHAB, HE WILL CALL [facility] [place] [facility]. [facility]NTIL THEY SCHEDULE HIS FOLLOW UP APPOINTMENT LATER, WHICH CM EXPLAINED COULD BE MONTHS FROM NOW. [facility], PT HAS NO COMMUNITY PHYSICIAN TO FOLLOW HOME HEALTH ORDERS. PT REFUSES INPATIENT REHAB SERVICES AT THIS TIME. PT PLANS TO DISCHARGE HOME WITH HIS ADULT SONS. Matt Suero, CASE MANAGEMENT
[2016-09-22 12:08] VITALS: BP 147/87
--- NOTE | 2016-09-22 13:53 | NUR ---
Nutrition Follow Up: Staff in pt's room at the time of RD visit. Interview deferred at this time. Chart reviewed. Pt is eating 65% meal avg on a diabetic diet. +BM 09/20/16. No new wt to assess. I>O. Labs noted - Glucose elevated. Meds noted including NS @ 30 ml/hr, Prednisone, Humalog. Pt with fair po intake at this time. Rec continue current diet. RD following.
--- NOTE | 2016-09-22 15:08 | NUR ---
ALERT AND ORIENTED X4. TAKEN TO VISIT ON MED-SURG VIA WHEELCHAIR. RETURN TO ROOM. ASSIST TO CHAIR. REQUEST BIPAP FOR 20MINS. BIPAP ON. DENIES PAIN. LT FA IV SL. SINUS TACH WITH PVC ON TELEMETRY. CONTINUE PLAN OF CARE AND SAFETY PRECAUTONS.
[2016-09-22 16:00] VITALS: BP 153/84
--- NOTE | 2016-09-22 18:00 | NUR ---
ALERT AND ORIENTED X4. SITTING UP IN CHAIR. DC ORDER PLACED. PULMANOLOGY NOT YET SIGNED OFF. NEEDS WRITTEN PRESCRIPTIONS FOR [facility] TO F[facility]. NO PRESCRIPTIONS PROVIDED. NEEDS PHYSICAL THERAPY AT HOME. SPOKE WITH PATIENT. PATIENT OK WITH STAYING TONIGHT TO GET MEDICATIONS NEEDED. CONTINUE PLAN OF CARE AND SAFETY PRECAUTIONS. PLAN TO DC TOMORROW WHEN PRESCRIPTIONS OBTAINED FOR [facility] TO FILL.
[2016-09-22 21:13] VITALS: BP 152/86
--- NOTE | 2016-09-23 07:42 | NUR ---
AM ROUNDING- RECEIVED REPORT FROM [facility] DIRECTOR COMBAT OPERATIONS OFFICER NURSE HENRY. PT IS CURRENTLY LAYING IN BED ON BACK WITH HOB ELEVATED AT 30 DEGREES. ON MONITOR SHOWING SR, HR 80. ON EP, WILL CHECK AM LABS AND TX PER PROTOCOL. ON 02 AT 4L VIA NC. BIPAP IN ROOM, PT WEARS AT HS. IV SEEN TO LEFT FOREARM THAT IS CURRENTLY SALINE LOCKED. NO NEED AT CURRENT TIME. PT IS ANXIOUSLY AWAITING D/C. WILL CONTINUE TO MONITOR.
[2016-09-23 08:37] VITALS: BP 155/89
[2016-09-23 12:32] VITALS: BP 152/84
--- NOTE | 2016-09-23 14:41 | NUR ---
D/C INSTRUCTIONS EXPLAINED TO PT. D/C PAPERWORK SIGNED BY PT AND PLACED IN CHART. IV REMOVED WITH CATH TIP INTACT, TOLERATED WELL. HEART MONITOR RETURNED TO [facility] IN TELEMETRY. PT D/C VIA WHEELCHAIR VIA STAFF MEMBER ACCOMPANIED BY FAMILY MEMBERS.
--- NOTE | 2016-09-24 08:48 | NUR ---
Patient Name: FLIP DOLAN Encounter No: [id number] : 1945 Primary Insurance: MEDICARE PART A ONLY Anticipated DC Date: 09-23-2016 Planned Disposition: Home DCP follow-up note: CM FAXED ALL DISCHARGE INFORMATION [facility] REFERRAL TO [facility] IN [place], . Matt Suero, CASE MANAGEMENT
--- NOTE | 2016-09-24 09:23 | DS ---
PATIENT:FLIP DOLAN :[birth year] MEDICAL RECORD: [id number] DISCHARGE SUMMARY ADMISSION DATE: 09/12/16 DISCHARGE DATE: 09/23/16 DATE OF ADMISSION: 09/12/2016. DATE OF DISCHARGE: 09/23/2016. ADMITTING DIAGNOSES: 1. Acute respiratory failure. 2. Chronic obstructive pulmonary disease exacerbation. 3. Hypomagnesemia. 4. Hypocalcemia. 5. Coronary artery disease. 6. Diabetes mellitus. 7. Hypertension. 8. Chronic diastolic congestive heart failure. 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 All events, lab, procedures, diagnostic testing are well documented in the records. He was placed on mechanical ventilation. Dr. Duarte consulted. His recommendations were followed. He eventually was weaned off the vent, stabilized, and transferred out of the unit. Home meds restarted. Physical therapy worked with him. He progressed and it was felt he really would benefit from some rehabilitation. He adamantly refuses rehab, does not want to go. He already has a BiPAP machine at home. He has 3 grown sons at home. He will be his caregivers. He is stable for discharge. Please refer to well-documented notes and records in that regard. He is dismissed home. DISCHARGE DIAGNOSES: 1. Respiratory failure. 2. Zuvsu-yl-otoiugj hypoxic hypercapnic respiratory failure status post extubation. 3. Hospital-acquired pneumonia with Gram-negative gasper versus methicillin-resistant Staphylococcus aureus. Completed antibiotics times 10 days. 4. Mild interstitial disease. 5. Scarring from chronic obstructive pulmonary disease. 6. Acute exacerbation of chronic obstructive pulmonary disease, resolved. 7. Xcezv-jr-lhvbtzm diastolic congestive heart failure. 8. Mild pulmonary hypertension with RVSP of 35. 9. Mild aortic stenosis. 10. Diabetes mellitus type 2 with hyperglycemia. 11. History of cerebrovascular accident. 12. Hypertension. 13. Hyperlipidemia. 14. Coronary artery disease. 15. Gastroesophageal reflux disease. 16. Anemia. 17. Hypomagnesemia. Greater than 30 minutes was spent on this discharge: Please refer to med rec. TRANSINT:[id number] Voice Confirmation ID: [id number] DOCUMENT ID: [id number] DISCHARGE SUMMARY REPORT [id number] FLIP DOLAN Dictated By: JAQUAN SCHMIDT RN I have interviewed/examined the above patient and agree with these documented findings. DONALD ANNE MD at 0923 CC: [id number] DICTATION DATE: 09/23/16 1356 RADIO DISPATCHER: 09/24/16 0210 DIS IN 09/23/16 [place] [id number] [place] [id number]
== END 2016-09-23 14:43 | disposition home or self-care (01) | DRG 208 ==
LOC: D.ER 20:49 → D.ICU 23:52 → D.M2 23:52 → D.CVICU 09-14 19:50 → D.M2 09-15 13:18
PROVIDERS: Emergency Medicine; Internal Medicine Pulmonary Disease; Surgery; ADMIT Family Medicine
PROC: 5A1945Z Respiratory Ventilation, 24-96 Consecutive Hours (ICD-10-PCS; principal; 2016-09-12)
PROC: 0T9B70Z Drainage of Bladder with Drainage Device, Via Natural or Artificial Opening (ICD-10-PCS; 2016-09-12)
PROC: 5A09557 Assistance with Respiratory Ventilation, Greater than 96 Consecutive Hours, Continuous Positive Airway Pressure (ICD-10-PCS; 2016-09-15)
DX: J96.22 Acute and chronic respiratory failure with hypercapnia (principal); J15.6 Pneumonia due to other Gram-negative bacteria; I50.33 Acute on chronic diastolic (congestive) heart failure; J15.212 Pneumonia due to Methicillin resistant Staphylococcus aureus; J44.0 Chronic obstructive pulmonary disease with (acute) lower respiratory infection; J44.1 Chronic obstructive pulmonary disease with (acute) exacerbation; J96.21 Acute and chronic respiratory failure with hypoxia; J30.9 Allergic rhinitis, unspecified; E78.5 Hyperlipidemia, unspecified; K21.9 Gastro-esophageal reflux disease without esophagitis; E83.51 Hypocalcemia; D64.9 Anemia, unspecified; E83.42 Hypomagnesemia; I27.2 Other secondary pulmonary hypertension; E11.9 Type 2 diabetes mellitus without complications; I25.10 Atherosclerotic heart disease of native coronary artery without angina pectoris; I48.91 Unspecified atrial fibrillation; I35.0 Nonrheumatic aortic (valve) stenosis; I11.0 Hypertensive heart disease with heart failure; Z78.1 Physical restraint status; Z95.5 Presence of coronary angioplasty implant and graft; Z86.73 Personal history of transient ischemic attack (TIA), and cerebral infarction without residual deficits